=== PATIENT | female | born 1935 | race Caucasian/White ===

== ENCOUNTER → 2017-01-13 | Outpatient (CLI) | payer MEDICARE, BC | END | disposition disaster alternative care site (69) | LOC: GRAD 13:24 | DX: R41.82 Altered mental status, unspecified (principal); M62.81 Muscle weakness (generalized); R29.6 Repeated falls; G31.9 Degenerative disease of nervous system, unspecified ==

== ENCOUNTER → 2017-02-18 | Outpatient (CLI) | payer MEDICARE, BC | END | disposition disaster alternative care site (69) | LOC: GRAD 13:00 | DX: R41.82 Altered mental status, unspecified (principal); J98.59 Other diseases of mediastinum, not elsewhere classified; R63.4 Abnormal weight loss; Z90.710 Acquired absence of both cervix and uterus ==